=== PATIENT | female | born 1985 | race African-American/Black ===

== ENCOUNTER 2024-05-29 10:44 | Emergency (ER) | payer MEDICAID, OTHER ==
[~2024-05-29] VITALS: Ht 175.3 cm; Wt 118.5 kg
[2024-05-29 12:17] LABS: Urine Bacteria FEW /hpf (None Seen); Urine Blood 3+ /uL (Negative); Urine Clarity Clear (Clear); Urine Color Yellow (Yellow); Urine Mucus FEW (None Seen); Urine Protein, UAD TRACE (Negative); Urine Specific Gravity 1.025 (1.001-1.035); Urine Squamous Epithelial Cell FEW /hpf (<5); Urine Urobilinogen Normal (Negative); Urine WBC 8 /hpf (0 - 5); Urine pH 5.5 (5.0-9.0)
--- NOTE | 2024-05-29 13:00 | ED.PDOC ---
SHINGLER HPI Comments 38y F who presents to the ED for chief complaint of vaginal bleeding. Pt states she has been having vaginal bleeding for the past 2 weeks.Pt states she has been going through 3x pads daily. Pt LMP is 05/12/24. Pt has normal vitals in the ED. Pt otherwise denies any other symptoms. Chief Complaint: Vaginal Bleed Time Seen by MD: 12:58 Allergies: Coded Allergies: NO KNOWN ALLERGIES (Unverified , 05/29/24) Information Source: Patient Mode of Arrival: Ambulatory Constitutional: denies: chills, diaphoresis, fatigue, fever, malaise, sweats, weakness, others EENTM: denies: blurred vision, double vision, ear bleeding, ear discharge, ear drainage, ear pain, ear ringing, eye pain, eye redness, hearing loss, mouth pain, mouth swelling, nasal discharge, nose bleeding, nose congestion, nose pain, photophobia, tearing, throat pain, throat swelling, voice changes, others Respiratory: denies: cough, hemoptysis, orthopnea, SOB at rest, shortness of breath, SOB with excertion, stridor, wheezing, others Cardiovascular: denies: chest pain, dizzy spells, diaphoresis, Dyspnea on exertion, edema, irregular heart beat, left arm pain, lightheadedness, pa lpitations, PND, syncope, others Gastrointestinal: denies: abdomen distended, abdominal pain, blood streaked bowels, constipated, diarrhea, dysphagia, difficulty swallowing, hematemesis, melena, nausea, poor appetite, poor fluid intake, rectal bleeding, rectal pain, vomiting, others Genitourinary: reports: abnormal vagina bleeding; denies: burning, dyspareunia, dysuria, flank pain, frequency, hematuria, incontinence, pain, , vagina discharge, urgency, others Neurological: denies: dizziness, fainting, headache, left sided numbness, left sided weakness, numbness, paresthesia, pre-existing deficit, right sided numbness, right sided weakness, seizure, speech problems, tingling, tremors, weakness, others Musculoskeletal: denies: back pain, gout, joint pain, joint swelling, muscle pain, muscle stiffness, neck pain, others Integumetry: denies: bruises, change in color, change in hair/nails, dryness, laceration, lesions, lumps, rash, wounds, others Allergic/Immunocompromised: denies: Difficulty Healing, Frequent Infections, Hives, Itching, others Hematologic/Lymphatic: denies: anemia, blood clots, easy bleeding, easy bruising, swollen glands, others Endocrine: denies: excessive hunger, excessive sweating, excessive thirst, excessive urination, flushing, intolerance to cold, intolerance to heat, unexplained weight gain, unexplained weight loss, others Psychiatric: denies: anxiety, bipolar disorder, depression, hopeless, panic disorder, schizophrenia, sleepless, suicidal, others All Other Systems: Reviewed and Negative Physical Exam General Appearance: No Apparent Distress, Normal HEENT: Normal ENT Inspection, Pharynx Normal, TMs Normal Neck: Full Range of Motion, Non-Tender, Normal, Normal Inspection Respiratory: Chest Non-Tender, Lungs Clear, No Accessory Muscle Use, No Respiratory Distress, Normal Breath Sounds Cardiovascular: No Edema, No JVD, No Murmur, No Gallop, Normal Peripheral Pulses, Regular Rate/Rhythm Breast Exam: Deferred Gastrointestinal: Suprapubic (minimally tender to palpation) Genitalia: Deferred Pelvic: Deferred Rectal: Deferred Extremities: No calf tenderness, Normal capillary refill, Normal inspection, Normal range of motion, Non-tender, No pedal edema Musculoskeletal : Apperance: Normal Neurologic: Alert, vp delivery II-XII nml as Tested, No Motor Deficits, Normal Affect, Normal Mood, No Sensory Deficits Cerebellar Function: Normal Reflexes: Normal Skin: Dry, Normal Color, Warm Lymphatic: No Adenopathy Was a procedure done? Was a procedure done?: No Differential Diagnosis (ADMINISTRATIVE PROGRAM SPECIALIST) Vaginal Bleeding: - Complete, - Incomplete, - Inevitable, - Missed, - Threatened, Abruptio Placentae, Blood Loss Anemia, Cervicitis, Ectopic , PID, Placenta Previa, Trauma, UTI, Vaginitis X-Ray, Labs, Meds, VS Vital Signs Date Time Temp Pulse Resp B/P (MAP) Pulse Ox O2 Delivery O2 Flow Rate FiO2 05/29/24 16:00 98.6 98.6 05/29/24 15:59 98.6 05/29/24 14:53 99.3 05/29/24 14:44 99.3 72 18 136/87 (103) 99 99.3 05/29/24 14:44 72 18 99 Room Air 05/29/24 11:27 98.1 84 18 121/73 (89) 98 Lab Test 05/29/24 15:42 05/29/24 11:56 Range/Units Beta HCG, Quantitative 46.4 H 1.5-4.2 mIU/mL Urine Color Yellow Yellow Urine Clarity Clear Clear Urine pH 5.5 5.0-9.0 Urine Specific [place] 1.025 1.001-1.035 Urine Protein Trace H Negative Urine Ketones Negative Negative Urine Blood 3+ H Negative /uL Urine Nitrite Negative Negative Urine Bilirubin Negative Negative Urine Urobilinogen Normal Negative mg/dL Urine Leukocyte Esterase Trace Negative /uL Urine RBC 560 0 - 4 /hpf Urine WBC 8 0 - 5 /hpf Urine Squamous Epithelial Cells Few <5 /hpf Urine Bacteria Few H None Seen /hpf Urine Mucus Few None Seen Urine Glucose Normal Normal mg/dL Urine Test See comment A Negative Current Medications Medications (Trade) Dose Ordered Sig/Vy Route Start Time Stop Time Status Last Admin Acetaminophen (Tylenol Tablet Or Capsule) 1,000 mg ONCE ONCE PO 05/29/24 15:00 05/29/24 15:01 DC 05/29/24 14:53 Cephalexin (Keflex Capsule) 500 mg ONCE ONCE PO 05/29/24 15:00 05/29/24 15:01 DC 05/29/24 14:52 Time of 1ST Reevaluation: 13:30 Reevaluation 1ST: Unchanged Patient Education/Counseling: Diagnosis, Treatment, Prognosis, Need For Follow Up Family Education/Counseling: No Family Present Additional Information - I reviewed the following notes from patient's past medical encounters: - The following tests were ordered, and results were reviewed by me: (Labs, ua): UA, urine test - Additional information was gathered from interviewing the following independent Historian: (Family, Other Providers, EMT): none - I reviewed and agreed with the following test results read by other provider: (US): none - I discussed treatments and results with medical personnel and: (consultants, family): none Departure 1 Departure Time of Disposition: 17:33 Impression: Primary Impression: Early stage of Additional Impressions: Threatened UTI (urinary tract infection) Qualified Codes: N30.00 - Acute cystitis without hematuria Disposition: HOME / SELF CARE / HOMELESS Condition: Good Additional Instructions: return for recheck of hcg , or you can recheck with your doctor, in 48 hours. pelvic rest Discharged With: Self Critical Care Note Critical Care Time?: Yes (55 min-critical care time only) Critical care comment: due to concerns for patient's condition deterioration, the care required my highest attention and readiness to intervene. i spoke to the family, patient, reviewed any records, ordered the appropriate tests and treatments, reviewed the results, response and communicated with medical personnel, formulated a plan of care. critical care time does not include any procedures Stability Stability form required: No Heart Score Heart Score: Heart Score Response (Comments) Value History N/A 0 EKG N/A 0 Age N/A 0 Risk Factors N/A 0 Troponin N/A 0 Total 0 I personally scribed for ADAL CONDON [facility] on 05/29/24 at 13:00. Electronically submitted by Velia Villegas ([email or web address]). ADAL CONDON MD May 29, 2024 13:00
[2024-05-29] MEDS: CEPHALEXIN 250 MG CAP PO ONE (14:52)
[2024-05-29] MEDS: ACETAMINOPHEN 500 MG TAB or CAP PO ONE (14:53)
--- NOTE | 2024-05-29 16:20 | DVH ---
Procedure: US OB ULTRASOUND COMP LESS 14WKS Study Date and Requested Time: 05/29/2024 02:58 PM Study Description: US OB ULTRASOUND COMP LESS 14WKS History: bleeding Comparison: None Technique: Multiple high resolution onofre-scale images obtained of the uterus, fetus, and other gestat ional components with M-mode scanning for evaluation of heart rate. Findings: No intrauterine is visualized. Uterus measures 8.6 x 6.5 x 6.5 cm in size. 0.7 x 0.4 x 0.6 cm sonolucent intrauterine areas noted. T here is fluid within the endometrial canal with 3.3 x 2.2 x 0.8 cm echogenic structure over the lower uterine segment. Cervical os appears closed. Right ovary measures 1.2 x 3.4 x 3.9 cm. Left ovary measures 2.6 x 2.4 x 2.8 cm. Normal ovarian color Doppler flow bilaterally. No evidence of cystic or solid ovarian lesions. No evidence of free fluid in the cul-de-sac. Impression: No live intrauterine is noted. 0.7 cm sonolucent intrauterine area is noted. An ectopic pre gnancy can not be excluded. Recommend correlation with serial beta HCG and ultrasound as clinically i ndicated. There is fluid within the endometrial canal with 0.3 x 2.2 x 0.8 cm echogenic structure over the lowe r uterine segment which may represent blood products.
[2024-05-29] MEDS ORDERED: CEPH500T PO (17:39)
[2024-05-29 18:15] VITALS: BP 104/68; PULSE 75; RESP 15; TEMP 98.6; O2SAT 100
== END 2024-05-29 18:15 | disposition home or self-care (01) ==
LOC: ER 10:44
DX: O20.0 Threatened abortion (principal); O23.41 Unspecified infection of urinary tract in pregnancy, first trimester; N39.0 Urinary tract infection, site not specified; Z3A.00 Weeks of gestation of pregnancy not specified
CPT/HCPCS: 36415; 76801; 76817; 81001; 81025; 84702; 86901; 99291

== ENCOUNTER → 2024-06-04 | Emergency (ER) | payer MEDICAID ==
[~2024-06-04] MED LIST: CEPH500T PO
[2024-06-04 20:51] LABS: Urine Bacteria FEW /hpf (None Seen); Urine Blood 2+ /uL (Negative); Urine Clarity Turbid (Clear); Urine Color Light-Yellow (Yellow); Urine Mucus FEW (None Seen); Urine Protein, UAD Negative (Negative); Urine Specific Gravity 1.015 (1.001-1.035); Urine Squamous Epithelial Cell FEW /hpf (<5); Urine Urobilinogen Normal (Negative); Urine WBC 15 /hpf (0 - 5); Urine pH 6.5 (5.0-9.0)
--- NOTE | 2024-06-04 22:13 | ED.PDOC ---
DENTAL [facility]ILL[facility] HPI Comments THIS IS A 38-YEAR-OLD FEMALE PRESENTS TO THE ED CHIEF COMPLAINT REPEAT BETA-HCG LAB WORK. PATIENT WAS SEEN HERE MAY IN THE HAD A BETA HCG DUE TO BLEEDING CLOTTING AND CRAMPING STATED SHE WAS HCG WAS IN THE 40S. PATIENT DENIES ANY BLEEDING CLOTTING ABDOMINAL PAIN OR CRAMPING AT THIS TIME. Chief Complaint: Vaginal Bleed Time Seen by MD: 20:45 Reviewed Notes: Nurses Notes, Medications, Allergies Allergies: Coded Allergies: NO KNOWN ALLERGIES (Unverified , 05/29/24) Home Meds Active Scripts Cephalexin Monohydrate (Cephalexin) 500 Mg Tab, 1 TAB PO QID for 7 Days, #28 TAB Prov:ADAL CONDON MD 05/29/24 Past Medical History PAST MEDICAL HISTORY: Denies Surgical History: Denies all surgeries MOLD CHANGER History: No Pertinent MOLD CHANGER History Family History Family History: Reviewed,noncontributory to illness Social History Smoker: Non-Smoker Alcohol: Denies ETOH Use Drugs: Denies Drug Use Constitutional: denies: chills, diaphoresis, fatigue, fever, malaise, sweats, weakness, others EENTM: denies: blurred vision, double vision, ear bleeding, ear discharge, ear drainage, ear pain, ear ringing, eye pain, eye redness, hearing loss, mouth pain, mouth swelling, nasal discharge, nose bleeding, nose congestion, nose pain, photophobia, tearing, throat pain, throat swelling, voice changes, others Respiratory: denies: cough, hemoptysis, orthopnea, SOB at rest, shortness of breath, SOB with excertion, stridor, wheezing, others Cardiovascular: denies: chest pain, dizzy spells, diaphoresis, Dyspnea on exertion, edema, irregular heart beat, left arm pain, lightheadedness, palpitations, PND, syncope, others Gastrointestinal: denies: abdomen distended, abdominal pain, blood streaked bowels, constipated, diarrhea, dysphagia, difficulty swallowing, hematemesis, melena, nausea, poor appetite, poor fluid intake, rectal bleeding, rectal pain, vomiting, others Genitourinary: denies: abnormal vagina bleeding, burning, dyspareunia, dysuria, flank pain, frequency, hematuria, incontinence, pain, , vagina discharge, urgency, others Neurological: denies: dizziness, fainting, headache, left sided numbness, left sided weakness, numbness, paresthesia, pre-existing deficit, right sided numbness, right sided weakness, seizure, speech problems, tingling, tremors, weakness, others Musculoskeletal: denies: back pain, gout, joint pain, joint swelling, muscle pain, muscle stiffness, neck pain, others Integumetry: denies: bruises, change in color, change in hair/nails, dryness, laceration, lesions, lumps, rash, wounds, others Allergic/Immunocompromised: denies: Difficulty Healing, Frequent Infections, H colt, Itching, others Hematologic/Lymphatic: denies: anemia, blood clots, easy bleeding, easy bruising, swollen glands, others Endocrine: denies: excessive hunger, excessive sweating, excessive thirst, excessive urination, flushing, intolerance to cold, intolerance to heat, unexplained weight gain, unexplained weight loss, others Psychiatric: denies: anxiety, bipolar disorder, depression, hopeless, panic disorder, schizophrenia, sleepless, suicidal, others Physical Exam General Appearance: No Apparent Distress, Normal HEENT: Pharynx Normal Neck: Full Range of Motion, Non-Tender Respiratory: Lungs Clear, No Respiratory Distress, Normal Breath Sounds Cardiovascular: No Murmur, Normal Peripheral Pulses, Regular Rate/Rhythm Breast Exam: Deferred Gastrointestinal: No Organomegaly, Non Tender, No Pulsatile Mass, Normal Bowel Sounds, Soft Genitalia: Deferred Pelvic: Deferred Rectal: Deferred Extremities: Normal capillary refill, Normal inspection, Normal range of motion, Non-tender, No pedal edema Musculoskeletal : Apperance: Normal Neurologic: Alert, pressure vessel inspector II-XII nml as Tested, No Motor Deficits, Normal Affect, Normal Mood, No Sensory Deficits Cerebellar Function: Normal Reflexes: Normal Skin: Dry, Normal Color, Warm Lymphatic: No Adenopathy Was a procedure done? Was a procedure done?: No Differential Diagnosis (MOLD CHANGER) Vaginal Bleeding: - Complete X-Ray, Labs, Meds, VS Lab Test 06/04/24 20:45 06/04/24 20:10 Range/Units Beta HCG, Quantitative 5.3 H 1.5-4.2 mIU/mL Urine Color Light-yellow Yellow Urine Clarity Turbid H Clear Urine pH 6.5 5.0-9.0 Urine Specific [place] 1.015 1.001-1.035 Urine Protein Negative Negative Urine Ketones Negative Negative Urine Blood 2+ H Negative /uL Urine Nitrite Negative Negative Urine Bilirubin Negative Negative Urine Urobilinogen Normal Negative mg/dL Urine Leukocyte Esterase 1+ Negative /uL Urine RBC 1 0 - 4 /hpf Urine WBC 15 0 - 5 /hpf Urine Squamous Epithelial Cells Few <5 /hpf Urine Bacteria Few H None Seen /hpf Urine Mucus Few None Seen Urine Glucose Normal Normal mg/dL X-Ray, Labs, Meds, VS Comment BETA HCG TRENDING DOWN FROM THE 40S TO 5. LIKELY MISCARRIAGE. PATIENT DENIES ANY NEW BLEEDING OR CLOTTING OR CRAMPING. DISCUSSED RESULTS WITH PATIENT. ADVISED TO FOLLOW UP WITH HER PCP WITHIN 2-3 DAYS NECESSARY ER RETURN PRECAUTIONS GIVEN PATIENT INDICATED UNDERSTANDING AGREES WITH DISCHARGE PLAN OF CARE. Time of 1ST Reevaluation: 22:13 Reevaluation 1ST: Improved Patient Education/Counseling: Diagnosis, Treatment, Prognosis, Need For Follow Up Family Education/Counseling: Diagnosis, Treatment, Prognosis, Need For Follow Up Departure 1 Departure Time of Disposition: 22:13 Impression: Primary Impression: Miscarriage Disposition: 01 HOME / SELF CARE / HOMELESS Condition: Stable Discharged With: Spouse Critical Care Note Critical Care Time?: No Stability Stability form required: VALERIA Diaz Jun 04, 2024 22:13
== END ==
LOC: ER 15:25
DX: O03.9 Complete or unspecified spontaneous abortion without complication (principal)
CPT/HCPCS: 36415; 81001; 84702